=== PATIENT | female | born 1985 | race Caucasian/White ===

== ENCOUNTER 2017-01-16 15:12 | Outpatient (CLI) | payer OTHER ==
[2017-01-16 14:28] LABS: BASOPHILS % (AUTO) 0.4 %; EOSINOPHILS # (AUTO) 0.1 10^3/uL (0.0-0.7); EOSINOPHILS % (AUTO) 1.3 %; HCT - HEMATOCRIT 43.4 % (37.0-47.0); HGB - HEMOGLOBIN 14.8 g/dL (12.0-16.0); LYMPHOCYTES # (AUTO) 1.7 10^3/uL (1.5-3.5); LYMPHOCYTES % (AUTO) 38.1 %; MEAN CORPUSCULAR HEMOGLOBIN 30.4 pg (27.0-31.0); MEAN CORPUSCULAR VOLUME 89.6 fL (81.0-99.0); MEAN PLATELET VOLUME 8.3 fL (7.9-10.8); MONOCYTES # (AUTO) 0.3 10^3/uL (0.0-1.0); MONOCYTES % (AUTO) 7.4 %; NEUTROPHILS # (AUTO) 2.4 10^3/uL (1.5-6.6); NEUTROPHILS % (AUTO) 52.8 %; NUCLEATED RED BLOOD CELLS AUTO 0.1 /100WBC; RED BLOOD COUNT 4.85 10^6/uL (4.20-5.40); RED CELL DISTRIBUTION WIDTH 13.8 % (12.0-15.0); UNCORRECTED WHITE BLOOD COUNT 4.6 x10^3/uL; WHITE BLOOD COUNT 4.6 x10^3/uL (4.8-10.8)
[2017-01-16 14:49] LABS: THYROID STIMULATING HORMONE 5.85 uIU/mL (0.34-5.60)
[2017-01-16 15:04] LABS: ALBUMIN/GLOBULIN RATIO 1.4 (1.0-2.2); BILIRUBIN,TOTAL 0.9 mg/dL (0.2-1.0); BUN - BLOOD UREA NITROGEN 10 mg/dL (6-20); CALCIUM 9.1 mg/dL (8.5-10.3); CARBON DIOXIDE - CO2 28 mmol/L (21-32); CHLORIDE 105 mmol/L (101-111); CHOL/HDL RATIO 4.9 (<4.4); CHOLESTEROL 200 mg/dL; CREATININE 0.8 mg/dL (0.4-1.0); GFR - MDRD 84 (>89); GLUCOSE 93 mg/dL (70-100); HDL CHOLESTEROL 41 mg/dL; LDL/HDL RATIO 3.2 (<4.4); POTASSIUM 4.1 mmol/L (3.5-5.0); SODIUM 139 mmol/L (135-145); TOTAL PROTEIN 7.5 g/dL (6.7-8.2); TRIGLYCERIDES 146 mg/dL; VLDL CHOLESTEROL 29 mg/dL
[2017-01-16 15:10] LABS: HEMOGLOBIN A1C 0.49 g/dL
== END 2017-01-16 15:13 | disposition home or self-care (01) ==
LOC: LAB.WCP 15:12
PROVIDERS: ATTEND Family Medicine
DX: Z00.00 Encounter for general adult medical examination without abnormal findings (principal)
CPT/HCPCS: 36415; 80053; 80061; 83036; 84439; 84443; 85025

== ENCOUNTER 2017-06-25 08:00 | Outpatient (CLI) | payer OTHER ==
[2017-06-25 13:46] LABS: CHOL/HDL RATIO 4.8 (<4.4); CHOLESTEROL 184 mg/dL; HDL CHOLESTEROL 38 mg/dL; LDL CHOLESTEROL,CALCULATED 126 mg/dL; LDL/HDL RATIO 3.3 (<4.4); VLDL CHOLESTEROL 20 mg/dL
[2017-06-25 13:48] LABS: THYROID STIMULATING HORMONE 5.62 uIU/mL (0.34-5.60)
[2017-06-25 14:16] LABS: LUTEINIZING HORMONE 6.5 mIU/mL
[2017-06-25 14:17] LABS: FOLLICLE STIMULATING HORMONE 7.11 mIU/mL
[2017-06-25 14:55] LABS: HB2 TOTAL 16.1 g/dL; HEMOGLOBIN A1C 0.5 g/dL
== END 2017-06-25 08:01 | disposition home or self-care (01) ==
LOC: LAB.WCP 08:00
PROVIDERS: ATTEND Obstetrics & Gynecology
DX: E78.5 Hyperlipidemia, unspecified (principal)
CPT/HCPCS: 36415; 80061; 82670; 82947; 83001; 83002; 83036; 83721; 84443

== ENCOUNTER 2017-07-03 11:55 | Outpatient (CLI) | payer OTHER ==
[2017-07-03 19:34] LABS: THYROID STIMULATING HORMONE 3.95 uIU/mL (0.34-5.60)
== END 2017-07-03 11:56 | disposition home or self-care (01) ==
LOC: LAB.WCP 11:55
PROVIDERS: ATTEND Obstetrics & Gynecology
DX: E03.9 Hypothyroidism, unspecified (principal)
CPT/HCPCS: 36415; 84439; 84443; 84481

== ENCOUNTER 2017-11-26 08:00 | Outpatient (CLI) | payer OTHER | END 2017-11-26 08:01 | disposition home or self-care (01) | LOC: LAB.R 08:00 | PROVIDERS: ATTEND Obstetrics & Gynecology | DX: Z11.3 Encounter for screening for infections with a predominantly sexual mode of transmission (principal) | CPT/HCPCS: 87491; 87591 ==

== ENCOUNTER 2017-11-26 10:04 | Outpatient (CLI) | payer OTHER | END 2017-11-26 10:05 | disposition home or self-care (01) | LOC: LAB 10:04 | PROVIDERS: ATTEND Obstetrics & Gynecology | DX: Z32.01 Encounter for pregnancy test, result positive (principal); Z11.3 Encounter for screening for infections with a predominantly sexual mode of transmission | CPT/HCPCS: 36415; 84702; 87491; 87591 ==

== ENCOUNTER 2017-11-27 14:47 | Outpatient (CLI) | payer OTHER ==
--- NOTE | 2017-11-27 18:03 | Ultrasound Report ---
Procedure Date: 11/27/2017 Accession Number: [id number] / [id number] Procedure: US - OB First Trimester CPT Code: FULL RESULT: EXAM: FIRST TRIMESTER OBSTETRIC ULTRASOUND (Less than 11 weeks) EXAM DATE: 11/27/2017 05:42 PM. CLINICAL HISTORY: Encounter for test, result positive. LMP: 09/22/2017. COMPARISONS: Pelvic ultrasound 12/08/2015. TECHNIQUE: Transabdominal and transvaginal ultrasound examination with static image documentation. CLINICAL DATES: EGA 9 weeks 3 days with ANIBAL 06/29/2018 based on LMP. ASSESSMENT: Gestational Sac: Single intrauterine. Mean gestational sac diameter: 22.4 mm = 6 weeks 5 days. Embryo: Possibly visualized CRL (crown-rump length) 3 mm mm = 5 weeks 6 days. Cardiac activity: Not visualized. Yolk sac: Not visualized. Amniotic fluid: Not accurately assessed at this gestational age. Early placenta: Not visible at this gestational age. Other: No perigestational fluid collection demonstrated. MATERNAL STRUCTURES: Uterus: Anteflexed. Pedunculated subserosal lower uterine segment fibroid measures 4.6 x 3.0 x 3.7 cm. Posterior fundal subserosal fibroid measures 2.5 x 1.9 x 1.1 cm. Intramural posterior fundal fibroid measures 1.5 x 1.4 x 1.4 cm. Cervix: Closed. Right Ovary/Adnexa: Probable corpus luteum measuring up to 2.1 cm. The ovary measures 3.9 x 2.6 x 2.3 cm, volume 12 cc. Left Ovary/Adnexa: Unremarkable. The ovary measures 3.6 x 2.6 x 2.1 cm, volume 10 cc. Free Fluid: Trace free fluid is likely physiologic. Other: None. IMPRESSION: 1. Intrauterine gestational sac with possible small embryo. Gestational age 5 weeks 6 days by presumed crown-rump length, discordant with clinical dates, recommend redating based upon this exam. No heart rate demonstrated. Findings are suspicious for but not diagnostic of failure. Recommend follow-up ultrasound in 7-10 days. 2. Uterine fibroids. 3. No evidence of ectopic/heterotopic with unremarkable adnexa. RADIA The above findings were discussed with Di Brunson by Dr. Marvin Chu at 17:59 hrs on 11/27/17.
== END 2017-11-27 14:48 | disposition home or self-care (01) ==
LOC: DI 14:47
PROVIDERS: ATTEND Obstetrics & Gynecology
DX: O34.11 Maternal care for benign tumor of corpus uteri, first trimester (principal); D25.1 Intramural leiomyoma of uterus; D25.2 Subserosal leiomyoma of uterus; Z3A.01 Less than 8 weeks gestation of pregnancy
CPT/HCPCS: 76801; 76817

== ENCOUNTER 2017-12-04 02:23 | Emergency (ER) | payer OTHER ==
[2017-12-04] MEDS ORDERED: SODIUM CHLORIDE 0.9% 1,000 ML IV ONE (03:00)
[2017-12-04 03:05] LABS: BASOPHILS % (AUTO) 0.6 %; EOSINOPHILS # (AUTO) 0.1 10^3/uL (0.0-0.7); EOSINOPHILS % (AUTO) 1.8 %; HGB - HEMOGLOBIN 13.7 g/dL (12.0-16.0); LYMPHOCYTES # (AUTO) 2.2 10^3/uL (1.5-3.5); MEAN CORPUSCULAR HEMOGLOBIN 30.3 pg (27.0-31.0); MEAN CORPUSCULAR HGB CONC 34.2 g/dL (32.0-36.0); MEAN CORPUSCULAR VOLUME 88.5 fL (81.0-99.0); MONOCYTES # (AUTO) 0.4 10^3/uL (0.0-1.0); MONOCYTES % (AUTO) 6.6 %; NEUTROPHILS # (AUTO) 3.7 10^3/uL (1.5-6.6); PLT - PLATELET COUNT 248 10^3/uL (130-450); RED BLOOD COUNT 4.51 10^6/uL (4.20-5.40); RED CELL DISTRIBUTION WIDTH 12.8 % (12.0-15.0); WHITE BLOOD COUNT 6.4 x10^3/uL (4.8-10.8)
[2017-12-04 03:17] LABS: ALBUMIN 4.2 g/dL (3.2-5.5); ALBUMIN/GLOBULIN RATIO 1.6 (1.0-2.2); BILIRUBIN,TOTAL 0.6 mg/dL (0.2-1.0); CREATININE 0.7 mg/dL (0.4-1.0); TOTAL PROTEIN 6.9 g/dL (6.7-8.2)
--- NOTE | 2017-12-04 03:26 | ED Physician Documentation ---
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 US in office did not provide adequate images, and thus patient had US performed in [facility] (outpatient). This US revealed gestational sac with measurements s/o 5w6d and no heart movement seen, suspicious for " failure". Plan was f/u US to be performed this coming Thursday. She presents at this time to ED due to bleeding and suprapubic cramping radiating to back, onset noon today but suddenly, significantly worse 10 PM. This is her first . Review of Systems Constitutional: denies: Fever Cardiac: reports: Reviewed and negative Respiratory: reports: Reviewed and negative GI: reports: Abdominal Pain (suprapubic pelvic cramping). denies: Nausea, Vomiting : reports: Vaginal bleeding, Now EGA (see HPI above). denies: Dysuria, Frequency Musculoskeletal: reports: Back pain PD PAST MEDICAL HISTORY - Past Medical History Past Medical History: No - Past Surgical History Past Surgical History: Yes - Present Medications Home Medications: Ambulatory Orders Medication Instructions Recorded Confirmed Pnv No.122/Iron/Folic Acid 1 each PO 12/04/17 [ Multi Tablet] - Allergies Allergies/Adverse Reactions: Allergies Allergy/AdvReac Type Severity Reaction Status Date / Time No Known Drug Allergies Allergy Verified 12/04/17 02:32 - Social History Does the pt smoke?: No Smoking Status: Never smoker Does the pt drink ETOH?: Yes Does the pt have substance abuse?: No - Immunizations Immunizations are current?: Yes PD ED PE NORMAL - Vitals Vital signs reviewed: Yes - General General: Alert and oriented X 3, No acute distress, Well developed/nourished - Cardiac Cardiac: RRR, No murmur - Respiratory Respiratory: No respiratory distress, Clear bilaterally - Abdomen Abdomen: Soft, Non tender - Back Back: No CVA TTP PD ED PE EXPANDED - Female Female : Vaginal Bleeding, Tissue present, Senior Instrumentation Engineer present, Other (large amt. blood in vagina, with clot that appears to also contain tissue, which was removed along with the blood. This allowed for good visualization of the cervix , and no active bleeding noted once the clot/(tissue?) was removed). No: Dilated cervix Results - Vitals Vitals: Vital Signs - 24 hr 12/04/17 12/04/17 12/04/17 02:28 04:46 06:47 Temperature 36.9 C Heart Rate 86 83 74 Respiratory 16 16 16 Rate Blood Pressure 127/93 H 114/88 H 120/94 H O2 Saturation 99 100 99 12/04/17 08:22 Temperature 37.3 C Heart Rate 83 Respiratory 20 Rate Blood Pressure 115/78 O2 Saturation 99 Oxygen O2 Source Room air - Labs Labs: Laboratory Tests 12/04/17 12/04/17 12/04/17 02:45 02:45 02:45 WBC 6.4 RBC 4.51 Hgb 13.7 Hct 39.9 MCV 88.5 MCH 30.3 MCHC 34.2 RDW 12.8 Plt Count 248 MPV 8.0 Neut # (Auto) 3.7 Lymph # (Auto) 2.2 [place] # (Auto) 0.4 Eos # (Auto) 0.1 Baso # (Auto) 0.0 Absolute Nucleated RBC 0.00 Nucleated RBC % 0.0 Sodium 139 Potassium 3.4 L Chloride 105 Carbon Dioxide 26 Anion Gap 8.0 BUN 6 Creatinine 0.7 Estimated GFR (MDRD) 97 Glucose 105 H Calcium 9.0 Total Bilirubin 0.6 AST 18 ALT 11 Alkaline Phosphatase 50 Total Protein 6.9 Albumin 4.2 Globulin 2.7 Albumin/Globulin Ratio 1.6 Lipase 36 HCG, Quant Urine Color Urine Clarity Urine pH Ur Specific [place] Urine Protein Urine Glucose (UA) Urine Ketones Urine Occult Blood Urine Nitrite Urine Bilirubin Urine Urobilinogen Ur Leukocyte Esterase Urine RBC Urine WBC Ur Squamous Epith Cells Urine Bacteria Ur Microscopic Review Urine Culture Comments Blood Type O POSITIVE Antibody Screen NEGATIVE 12/04/17 12/04/17 02:45 03:54 WBC RBC Hgb Hct MCV MCH MCHC RDW Plt Count MPV Neut # (Auto) Lymph # (Auto) [place] # (Auto) Eos # (Auto) Baso # (Auto) Absolute Nucleated RBC Nucleated RBC % Sodium Potassium Chloride Carbon Dioxide Anion Gap BUN Creatinine Estimated GFR (MDRD) Glucose Calcium Total Bilirubin AST ALT Alkaline Phosphatase Total Protein Albumin Globulin Albumin/Globulin Ratio Lipase HCG, Quant 9525.00 Urine Color RED/BLOODY Urine Clarity BLOODY Urine pH Ur Specific [place] Urine Protein Urine Glucose (UA) Urine Ketones Urine Occult Blood LARGE H Urine Nitrite Urine Bilirubin NEGATIVE Urine Urobilinogen Ur Leukocyte Esterase Urine RBC TNTC H Urine WBC 0-3 Ur Squamous Epith Cells NONE SEEN Urine Bacteria Rare Ur Microscopic Review INDICATED Urine Culture Comments Not Reportable Blood Type Antibody Screen - Rads (name of study) pelvic/TV US Radiology: Prelim report reviewed, See rad report PD MEDICAL DECISION MAKING - ED course Complexity details: reviewed results, re-evaluated patient, considered differential, d/w patient ED course: reassuring CBC. HCG quantitative reveals substantial decrease from 11/26/17 (less than one-third of value on 11/26), and US results suggest completed miscarriage ( also considering closed os, as well as resolution of cramping discomfort and significant decrease in patient's vaginal bleeding subsequent to pelvic exam but while awaiting US and results). These results and diagnosis were d/w patient and she expresses understanding of the diagnosis and test results. - Sepsis Event Vital Signs: Vital Signs - 24 hr 12/04/17 12/04/17 12/04/17 02:28 04:46 06:47 Temperature 36.9 C Heart Rate 86 83 74 Respiratory 16 16 16 Rate Blood Pressure 127/93 H 114/88 H 120/94 H O2 Saturation 99 100 99 12/04/17 08:22 Temperature 37.3 C Heart Rate 83 Respiratory 20 Rate Blood Pressure 115/78 O2 Saturation 99 Oxygen O2 Source Room air Departure - Departure Disposition: 01 Home, Self Care Clinical Impression: Complete miscarriage Condition: Good Instructions: ED Miscarriage Completed Follow-Up: Di Brunson DO [Provider Admit Priv/Credential] - Forms: Activity restrictions Discharge Date/Time: 12/04/17 08:25
[2017-12-04 04:25] LABS: BILIRUBIN,URINE NEGATIVE (NEGATIVE); OCCULT BLOOD,URINE LARGE (NEGATIVE)
[2017-12-04 04:33] LABS: CLARITY,URINE BLOODY (CLEAR)
[2017-12-04 04:35] LABS: BACTERIA,URINE Rare /HPF (None Seen); RBC,URINE TNTC /HPF (0-5); SQUAMOUS EPITHELIAL CELL,UR NONE SEEN (<= Few)
--- NOTE | 2017-12-04 07:52 | Ultrasound Report ---
Procedure Date: 12/04/2017 Accession Number: [id number] / [id number] Procedure: US - OB First Trimester CPT Code: FULL RESULT: EXAM: PELVIC ULTRASOUND EXAM DATE: 12/04/2017 06:02 AM. CLINICAL HISTORY: , vaginal bleeding. COMPARISON: 11/27/2017. TECHNIQUE: Realtime transabdominal pelvic scan performed to identify the uterus and adnexa and as an overview of other pelvic structures, followed by transvaginal scan to provide greater detail of the uterus and adnexa, with static image documentation. FINDINGS: Uterus: 9.4 x 5.5 x 6.5 cm, c. Anteverted position. Normal overall size and echotexture. Masses: Fibroids Endometrium: 13 x 26 mm. Avascular soft tissue lower uterine segment Cervix: Unremarkable. Right Ovary: 4 x 2.3 x 2.5 cm, volume 11.8 cc. Normal echotexture and blood flow. Left Ovary: 2.6 x 2.2 x 2.2 cm, volume 6.7 cc. Normal echotexture and blood flow. Free Fluid: None. Other: None. IMPRESSION: Gestational sac seen previously no longer present. There is avascular soft tissue in the endometrial. Findings suspicious for failure. Follow-up ultrasound 7-10 days RADIA
--- NOTE | 2017-12-04 08:01 | Ultrasound Report ---
Procedure Date: 12/04/2017 Accession Number: [id number] / [id number] Procedure: US - OB Transvaginal CPT Code: FULL RESULT: EXAM: PELVIC ULTRASOUND EXAM DATE: 12/04/2017 06:02 AM. CLINICAL HISTORY: , vaginal bleeding. COMPARISON: 11/27/2017. TECHNIQUE: Realtime transabdominal pelvic scan performed to identify the uterus and adnexa and as an overview of other pelvic structures, followed by transvaginal scan to provide greater detail of the uterus and adnexa, with static image documentation. FINDINGS: Uterus: 9.4 x 5.5 x 6.5 cm, anteverted position. Normal overall size and echotexture. Masses: Fibroids. Endometrium: 13 x 26 mm. Avascular soft tissue lower uterine segment. Cervix: Unremarkable. Right Ovary: 4 x 2.3 x 2.5 cm, volume 11.8 cc. Normal echotexture and blood flow. Left Ovary: 2.6 x 2.2 x 2.2 cm, volume 6.7 cc. Normal echotexture and blood flow. Free Fluid: None. Other: None. IMPRESSION: Gestational sac seen previously no longer present. There is avascular soft tissue within the endometrium. Findings suspicious for failure. Follow-up ultrasound 7-10 days. RADIA
[2017-12-04 08:23] VITALS: BP 115/78
== END 2017-12-04 08:25 | disposition home or self-care (01) ==
LOC: ED 02:23
DX: O03.80 Unspecified complication following complete or unspecified spontaneous abortion (principal)
CPT/HCPCS: 36415; 76801; 76817; 80053; 81001; 81003; 83690; 84702; 85025; 86850; 86900; 86901; 87086; 96360; 99284

== ENCOUNTER 2018-01-13 14:01 | Outpatient (CLI) | payer OTHER ==
[2018-01-13 19:43] LABS: THYROID STIMULATING HORMONE 4.52 uIU/mL (0.34-5.60)
[2018-01-13 19:45] LABS: FREE T4 (FREE THYROXINE) 0.92 ng/dL (0.58-1.64)
== END 2018-01-13 14:02 | disposition home or self-care (01) ==
LOC: LAB.WCP 14:01
PROVIDERS: ATTEND Obstetrics & Gynecology
DX: Z13.29 Encounter for screening for other suspected endocrine disorder (principal)
CPT/HCPCS: 36415; 84439; 84443; 84481

== ENCOUNTER 2018-06-22 07:39 | Outpatient (CLI) | payer OTHER ==
[2018-06-22 13:06] LABS: CHOL/HDL RATIO 4.2 (<4.4); CHOLESTEROL 192 mg/dL; HDL CHOLESTEROL 46 mg/dL; LDL CHOLESTEROL,CALCULATED 130 mg/dL; LDL/HDL RATIO 2.8 (<4.4); VLDL CHOLESTEROL 16 mg/dL
== END 2018-06-22 07:40 | disposition home or self-care (01) ==
LOC: LAB.WCP 07:39
PROVIDERS: ATTEND Family Medicine
DX: E78.5 Hyperlipidemia, unspecified (principal)
CPT/HCPCS: 36415; 80061; 83721

== ENCOUNTER 2018-08-10 08:11 | Outpatient (CLI) | payer OTHER ==
[2018-08-10 12:47] LABS: THYROID STIMULATING HORMONE 1.59 uIU/mL (0.34-5.60)
[2018-08-10 12:49] LABS: FREE T4 (FREE THYROXINE) 1.15 ng/dL (0.58-1.64)
== END 2018-08-10 08:12 | disposition home or self-care (01) ==
LOC: LAB.WCP 08:11
PROVIDERS: ATTEND Specialist
DX: E03.8 Other specified hypothyroidism (principal); Z13.29 Encounter for screening for other suspected endocrine disorder
CPT/HCPCS: 36415; 84439; 84443

== ENCOUNTER 2018-11-29 08:00 | Outpatient (CLI) | payer OTHER | END 2018-11-29 08:01 | disposition home or self-care (01) | LOC: LAB.WCP 08:00 | PROVIDERS: ATTEND Specialist | DX: N97.9 Female infertility, unspecified (principal) | CPT/HCPCS: 36415; 84144 ==

== ENCOUNTER 2018-11-30 08:00 | Outpatient (CLI) | payer OTHER | END 2018-11-30 08:01 | disposition home or self-care (01) | LOC: LAB.WCP 08:00 | PROVIDERS: ATTEND Specialist | DX: N97.9 Female infertility, unspecified (principal) | CPT/HCPCS: 36415; 84144 ==

== ENCOUNTER 2018-12-01 08:00 | Outpatient (CLI) | payer OTHER | END 2018-12-01 23:59 | disposition home or self-care (01) | LOC: LAB.WCP 08:00 | PROVIDERS: ATTEND Specialist | DX: N97.9 Female infertility, unspecified (principal) | CPT/HCPCS: 36415; 84144 ==

== ENCOUNTER 2018-12-13 08:00 | Outpatient (CLI) | payer OTHER ==
[2018-12-13 19:29] LABS: THYROID STIMULATING HORMONE 1.73 uIU/mL (0.34-5.60)
[2018-12-13 19:31] LABS: FREE T4 (FREE THYROXINE) 1.05 ng/dL (0.58-1.64)
== END 2018-12-13 23:59 | disposition home or self-care (01) ==
LOC: LAB.WCP 08:00
PROVIDERS: ATTEND Specialist
DX: E03.8 Other specified hypothyroidism (principal); Z13.29 Encounter for screening for other suspected endocrine disorder
CPT/HCPCS: 36415; 84439; 84443

== ENCOUNTER 2019-01-14 08:00 | Outpatient (CLI) | payer OTHER ==
[2019-01-14 18:44] LABS: BASOPHILS % (AUTO) 0.5 %; EOSINOPHILS # (AUTO) 0.1 10^3/uL (0.0-0.7); EOSINOPHILS % (AUTO) 1.6 %; HGB - HEMOGLOBIN 13.6 g/dL (12.0-16.0); LYMPHOCYTES % (AUTO) 45.3 %; MEAN CORPUSCULAR HEMOGLOBIN 30.6 pg (27.0-31.0); MEAN CORPUSCULAR HGB CONC 33.3 g/dL (32.0-36.0); MEAN CORPUSCULAR VOLUME 91.7 fL (81.0-99.0); MEAN PLATELET VOLUME 10.4 fL (7.9-10.8); MONOCYTES # (AUTO) 0.3 10^3/uL (0.0-1.0); NEUTROPHILS % (AUTO) 45.4 %; PLT - PLATELET COUNT 282 10^3/uL (130-450); RED BLOOD COUNT 4.45 10^6/uL (4.20-5.40); RED CELL DISTRIBUTION WIDTH 12.4 % (12.0-15.0); WHITE BLOOD COUNT 4.3 x10^3/uL (4.8-10.8)
[2019-01-14 19:49] LABS: ALBUMIN 4.3 g/dL (3.2-5.5); ALBUMIN/GLOBULIN RATIO 1.4 (1.0-2.2); ALKALINE PHOSPHATASE 47 IU/L (42-121); ALT ALANINE AMINOTRANSFERASE 11 IU/L (10-60); AST ASPARTATE AMINOTRANSFERASE 12 IU/L (10-42); BILIRUBIN,TOTAL 0.6 mg/dL (0.2-1.0); BUN - BLOOD UREA NITROGEN 9 mg/dL (6-20); CALCIUM 9.3 mg/dL (8.5-10.3); CARBON DIOXIDE - CO2 31 mmol/L (21-32); CHLORIDE 101 mmol/L (101-111); CHOL/HDL RATIO 3.3 (<4.4); CHOLESTEROL 163 mg/dL; CREATININE 0.8 mg/dL (0.4-1.0); GFR - MDRD 83 (>89); GLUCOSE 89 mg/dL (70-100); HDL CHOLESTEROL 50 mg/dL; LDL CHOLESTEROL,CALCULATED 90 mg/dL; LDL/HDL RATIO 1.8 (<4.4); SODIUM 141 mmol/L (135-145); TOTAL PROTEIN 7.3 g/dL (6.7-8.2); VLDL CHOLESTEROL 23 mg/dL
[2019-01-14 19:56] LABS: THYROID STIMULATING HORMONE 1.97 uIU/mL (0.34-5.60)
[2019-01-14 19:58] LABS: FREE T4 (FREE THYROXINE) 1.03 ng/dL (0.58-1.64)
[2019-01-14 20:11] LABS: HEMOGLOBIN A1C 0.48 g/dL; HEMOGLOBIN A1C % 5.3 % (4.6-6.2)
== END 2019-01-14 23:59 | disposition home or self-care (01) ==
LOC: LAB.WCP 08:00
PROVIDERS: ATTEND Specialist
DX: Z00.00 Encounter for general adult medical examination without abnormal findings (principal); E78.5 Hyperlipidemia, unspecified; R79.89 Other specified abnormal findings of blood chemistry; E03.8 Other specified hypothyroidism
CPT/HCPCS: 36415; 80053; 80061; 83036; 83721; 84439; 84443; 85025

== ENCOUNTER 2019-01-25 08:00 | Outpatient (CLI) | payer OTHER | END 2019-01-25 23:59 | disposition home or self-care (01) | LOC: LAB.WCP 08:00 | PROVIDERS: ATTEND Specialist | DX: Z31.41 Encounter for fertility testing (principal) | CPT/HCPCS: 36415; 84144 ==

== ENCOUNTER 2019-01-26 08:09 | Outpatient (CLI) | payer OTHER | END 2019-01-26 23:59 | disposition home or self-care (01) | LOC: LAB.WCP 08:09 | PROVIDERS: ATTEND Specialist | DX: Z31.41 Encounter for fertility testing (principal) | CPT/HCPCS: 36415; 84144 ==

== ENCOUNTER 2019-01-27 08:23 | Outpatient (CLI) | payer OTHER | END 2019-01-27 23:59 | disposition home or self-care (01) | LOC: LAB.WCP 08:23 | PROVIDERS: ATTEND Specialist | DX: Z31.41 Encounter for fertility testing (principal) | CPT/HCPCS: 36415; 84144 ==

== ENCOUNTER 2019-02-21 08:00 | Outpatient (CLI) | payer OTHER | END 2019-02-21 23:59 | disposition home or self-care (01) | LOC: LAB.WCP 08:00 | PROVIDERS: ATTEND Specialist | DX: Z32.00 Encounter for pregnancy test, result unknown (principal); Z31.41 Encounter for fertility testing | CPT/HCPCS: 36415; 81599; 84144; 84702 ==

== ENCOUNTER 2019-02-23 07:55 | Outpatient (CLI) | payer OTHER | END 2019-02-23 23:59 | LOC: LAB.WCP 07:55 | PROVIDERS: ATTEND Specialist | DX: Z32.01 Encounter for pregnancy test, result positive (principal); Z13.29 Encounter for screening for other suspected endocrine disorder | CPT/HCPCS: 36415; 84443; 84702 ==

== ENCOUNTER 2019-03-07 08:00 | Outpatient (CLI) | payer OTHER | END 2019-03-07 23:59 | disposition home or self-care (01) | LOC: LAB.WCP 08:00 | PROVIDERS: ATTEND Specialist | DX: Z32.01 Encounter for pregnancy test, result positive (principal) | CPT/HCPCS: 36415; 84702 ==

== ENCOUNTER 2019-03-28 08:00 | Outpatient (CLI) | payer OTHER ==
[2019-03-28 19:43] LABS: THYROID STIMULATING HORMONE 1.45 uIU/mL (0.34-5.60)
[2019-03-28 19:45] LABS: FREE T4 (FREE THYROXINE) 1.07 ng/dL (0.58-1.64)
== END 2019-03-28 23:59 | disposition home or self-care (01) ==
LOC: LAB.WCP 08:00
PROVIDERS: ATTEND Specialist
DX: Z13.29 Encounter for screening for other suspected endocrine disorder (principal); E03.8 Other specified hypothyroidism
CPT/HCPCS: 36415; 84439; 84443

== ENCOUNTER 2019-10-12 08:00 | Outpatient (CLI) | payer OTHER ==
[2019-10-12 12:52] LABS: THYROID STIMULATING HORMONE 2.84 uIU/mL (0.34-5.60)
[2019-10-12 12:54] LABS: FREE T4 (FREE THYROXINE) 1.16 ng/dL (0.58-1.64)
[2019-10-12 13:17] LABS: HB2 TOTAL 14.7 g/dL; HEMOGLOBIN A1C 0.49 g/dL; HEMOGLOBIN A1C % 5.2 % (4.6-6.2)
== END 2019-10-12 23:59 | disposition home or self-care (01) ==
LOC: LAB.WCP 08:00
PROVIDERS: ATTEND Specialist
DX: Z13.29 Encounter for screening for other suspected endocrine disorder (principal); E03.8 Other specified hypothyroidism; R73.09 Other abnormal glucose; E55.9 Vitamin D deficiency, unspecified
CPT/HCPCS: 36415; 81599; 82306; 82397; 83036; 84439; 84443

== ENCOUNTER 2019-10-31 08:00 | Outpatient (CLI) | payer OTHER ==
[2019-10-31 13:45] LABS: T4 (THYROXINE) 10.47 ug/dL (6.09-12.23)
[2019-10-31 13:49] LABS: FREE T3 3.11 pg/mL (2.5-3.9)
[2019-10-31 13:54] LABS: TOTAL T3 1.15 ng/mL (0.87-1.78)
[2019-10-31 13:57] LABS: CHOL/HDL RATIO 3.9 (<4.4); CHOLESTEROL 222 mg/dL; GLUCOSE 84 mg/dL (70-100); HDL CHOLESTEROL 57 mg/dL; LDL CHOLESTEROL,CALCULATED 148 mg/dL; LDL/HDL RATIO 2.6 (<4.4); VLDL CHOLESTEROL 17 mg/dL
[2019-11-01 07:03] LABS: PROGESTERONE 13.4 ng/mL
== END 2019-10-31 23:59 | disposition home or self-care (01) ==
LOC: LAB.WCP 08:00
DX: Z31.41 Encounter for fertility testing (principal); E28.39 Other primary ovarian failure; E28.2 Polycystic ovarian syndrome; E66.9 Obesity, unspecified
CPT/HCPCS: 36415; 80061; 81599; 82627; 82947; 83525; 83721; 84144; 84436; 84480; 84481; 84482

== ENCOUNTER 2020-07-03 08:00 | Outpatient (CLI) | payer OTHER ==
[2020-07-03 12:21] LABS: ALT ALANINE AMINOTRANSFERASE 12 IU/L (10-60); AST ASPARTATE AMINOTRANSFERASE 15 IU/L (10-42); GAMMA GLUTAMYL TRANSPEPTIDASE 12 IU/L (8-38)
== END 2020-07-03 23:59 | disposition home or self-care (01) ==
LOC: LAB.WCP 08:00
PROVIDERS: ATTEND Naturopath
DX: Z31.61 Procreative counseling and advice using natural family planning (principal)
CPT/HCPCS: 36415; 82533; 82977; 84144; 84450; 84460

== ENCOUNTER 2020-08-28 08:00 | Outpatient (CLI) | payer OTHER ==
[2020-08-28 10:00] LABS: BILIRUBIN,URINE NEGATIVE (NEGATIVE); GLUCOSE, URINE (UA) 100 mg/dL (NEGATIVE); KETONES,URINE (UA) NEGATIVE (NEGATIVE); LEUKOCYTE ESTERASE, URINE NEGATIVE (NEGATIVE); NITRITE,URINE NEGATIVE (NEGATIVE); OCCULT BLOOD,URINE NEGATIVE (NEGATIVE); PROTEIN,URINE NEGATIVE (NEGATIVE); UROBILINOGEN,URINE 0.2 (NORMAL) E.U./dL (NORMAL)
[2020-08-28 10:03] LABS: CLARITY,URINE CLEAR (CLEAR)
[2020-08-28 10:09] LABS: AMPHETAMINE SCREEN,URINE NEGATIVE (NEGATIVE); BACTERIA,URINE Rare /HPF (None Seen); BARBITURATE SCREEN,UR NEGATIVE (NEGATIVE); BENZODIAZEPINES SCREEN, URINE NEGATIVE (NEGATIVE); COCAINE SCREEN URINE NEGATIVE (NEGATIVE); METHADONE SCREEN, URINE NEGATIVE (NEGATIVE); METHAMPHETAMINES SCREEN, URINE NEGATIVE (NEGATIVE); OPIATE SCREEN, URINE NEGATIVE (NEGATIVE); OXYCODONE SCREEN, URINE NEGATIVE (NEGATIVE); PROPOXYPHENE SCREEN, URINE NEGATIVE (NEGATIVE); RBC,URINE 0-5 /HPF (0-5); SQUAMOUS EPITHELIAL CELL,UR RARE Squamous (<= Few); THC CANNABINOID SCREEN, URINE NEGATIVE (NEGATIVE); TRICYCLIC ANTIDEPRESSANT,URINE NEGATIVE (NEGATIVE); WBC,URINE 0-3 /HPF (0-5)
[2020-08-28 10:10] LABS: MUDS CUTOFF CONCENTRATIONS MUDS CUTOFF
[2020-08-28 21:27] LABS: CHLAMYDIA TRACHOMATIS DNA NEGATIVE (NEGATIVE); NEISSERIA GONORRHOEAE DNA NEGATIVE (NEGATIVE); TRICHOMONAS VAGINALIS DNA NEGATIVE (NEGATIVE)
== END 2020-08-28 23:59 | disposition home or self-care (01) ==
LOC: LAB.WC 08:00
PROVIDERS: ATTEND Obstetrics & Gynecology
DX: Z34.80 Encounter for supervision of other normal pregnancy, unspecified trimester (principal); Z11.3 Encounter for screening for infections with a predominantly sexual mode of transmission
CPT/HCPCS: 80306; 81001; 87086; 87491; 87591; 87661

== ENCOUNTER 2020-08-31 08:00 | Outpatient (CLI) | payer OTHER ==
[2020-08-31 12:31] LABS: BASOPHILS % (AUTO) 0.5 %; EOSINOPHILS # (AUTO) 0.1 10^3/uL (0.0-0.7); EOSINOPHILS % (AUTO) 1.3 %; HCT - HEMATOCRIT 41.7 % (37.0-47.0); HGB - HEMOGLOBIN 13.7 g/dL (12.0-16.0); LYMPHOCYTES # (AUTO) 1.5 10^3/uL (1.5-3.5); LYMPHOCYTES % (AUTO) 23.9 %; MEAN CORPUSCULAR HEMOGLOBIN 30.4 pg (27.0-31.0); MEAN CORPUSCULAR HGB CONC 32.9 g/dL (32.0-36.0); MEAN CORPUSCULAR VOLUME 92.5 fL (81.0-99.0); MEAN PLATELET VOLUME 10.4 fL (7.9-10.8); MONOCYTES # (AUTO) 0.4 10^3/uL (0.0-1.0); MONOCYTES % (AUTO) 6.5 %; NEUTROPHILS # (AUTO) 4.2 10^3/uL (1.5-6.6); NEUTROPHILS % (AUTO) 67.6 %; PLT - PLATELET COUNT 280 10^3/uL (130-450); RED BLOOD COUNT 4.51 10^6/uL (4.20-5.40); RED CELL DISTRIBUTION WIDTH 12.9 % (12.0-15.0); WHITE BLOOD COUNT 6.2 x10^3/uL (4.8-10.8)
[2020-09-01 10:31] LABS: HEPATITIS C ANTIBODY NON-REACTIVE (NON-REACTIVE)
[2020-09-01 12:06] LABS: HEPATITIS B SURFACE ANTIGEN NON-REACTIVE (NON-REACTIVE)
[2020-09-01 13:11] LABS: HIV AG/AB 4TH GEN NON-REACTIVE (NON-REACTIVE)
== END 2020-08-31 08:01 | disposition home or self-care (01) ==
LOC: LAB.WCP 08:00
PROVIDERS: ATTEND Obstetrics & Gynecology
DX: Z34.80 Encounter for supervision of other normal pregnancy, unspecified trimester (principal)
CPT/HCPCS: 36415; 85025; 86592; 86762; 86787; 86803; 86850; 86900; 86901; 87340; 87389

== ENCOUNTER 2020-09-25 08:00 | Outpatient (CLI) | payer OTHER | END 2020-09-25 23:59 | disposition home or self-care (01) | LOC: LAB.WCP 08:00 | PROVIDERS: ATTEND Obstetrics & Gynecology | DX: Z34.80 Encounter for supervision of other normal pregnancy, unspecified trimester (principal) | CPT/HCPCS: 36415; 81220; 81243; 81329; 81599 ==

== ENCOUNTER 2020-11-02 15:53 | Outpatient (CLI) | payer OTHER ==
[2020-11-02 18:50] LABS: THYROID STIMULATING HORMONE 1.31 uIU/mL (0.34-5.60)
--- NOTE | 2020-11-04 17:41 | Ultrasound Report ---
PROCEDURE: OB Detailed Eval INDICATIONS: SUPERVISION OF ELDERLY PRIMIGRAVIDA OUTSIDE/PRIOR DATING DATA: Last menstrual period (LMP): Not available. LMP-based estimated date of delivery (ANIBAL): Not available. First dating scan (date and location): 08/06/2020. Estimated date of delivery (ANIBAL) from first dating scan: 03/18/2021, [facility]. The below data below was generated using the ultrasound ANIBAL of 03/18/2021 TECHNIQUE: Real-time scanning was performed of the fetus, with image documentation and biometric measurements. Endovaginal scanning: Not performed COMPARISON: OB Ultrasound report, 08/06/2020 from [facility]. FINDINGS: General: A single living intrauterine gestation is present. Presentation: Variable Placenta: Placental position is posterior, without previa. Amniotic fluid index: 13.9 cm, largest pocket 4.2 cm. heart rate: 164 beats per minute. Maternal cervical canal: 5.14 cm long; normal length is 2.5 cm or more. biometrics: Biparietal diameter: 4.6 cm = 19 weeks 2 days Head circumference: 17.8 cm = 20 weeks 2 days Abdominal circumference: 17.5 cm = 22 weeks 3 days Femur length: 3.38 cm = 20 weeks 4 days Estimated gestational age from initial scan: 20 weeks 4 days. Composite gestational age from present scan: 20 weeks 4 days Estimated weight and percentile: 419g; 86.3% Measurement variability in biometric dating: +/- 10 days from 12-20 weeks gestation, +/- 2 weeks from 20-30 weeks gestation, +/- 3 weeks at 30 weeks g estation or later. Anatomic survey: Neuro: Ventricles are normal at less than 10 mm. Cisterna magna is normal at 3-11 mm. Cerebellum i s normal in size and morphology. Nuchal skin fold: Normal at less than 6 mm between 14 and 20 weeks gestational age. Face: Nose and lips are normal. Facial profile suboptimally visualized due to position. Spine: No evidence for spina bifida. Heart: 4-chambered heart is present, with normal ventricular outflow tracts. Diaphragm: Diaphragm is intact. Stomach: Left-sided stomach is present. Kidneys: No hydronephrosis. Normal is less than 5 mm in 2nd trimester, less than 7 mm in 3rd trimester. Cord: 3 vessel cord has orthotopic insertion. Bladder: Normal in size. Extremities: All 4 extremities are visualized. Comments: There are multiple uterine fibroids. 3 dominant fibroids are measured: 1. 2.8 x 2.2 x 2.3 cm; subserosal; right posterior. 2. 3.7 x 3.0 x 2.9 cm;; intramural; right anterior fundal. 3. 1.9 x 1.6 x 1.7 cm; intramural/subserosal; right anterior. There are corpus luteal cysts in maternal ovaries bilaterally. IMPRESSION: 1. A single living intrauterine gestation with appropriate interval growth. 2. Suboptimal visualization of facial profile; otherwise normal anatomic survey. 3. Multiple uterine fibroids. Reviewed by: Krishna Wise MD on 11/04/2020 5:40 PM PDT Approved by: Krishna Wise MD on 11/04/2020 5:40 PM PDT Station ID: [id number]
== END 2020-11-02 15:54 | disposition home or self-care (01) ==
LOC: DI 15:53
PROVIDERS: ATTEND Obstetrics & Gynecology
DX: O09.512 Supervision of elderly primigravida, second trimester (principal); Z3A.20 20 weeks gestation of pregnancy
CPT/HCPCS: 36415; 81599; 84443

== ENCOUNTER 2020-12-14 07:08 | Outpatient (CLI) | payer OTHER ==
[2020-12-14 11:34] LABS: HCT - HEMATOCRIT 38.2 % (37.0-47.0); HGB - HEMOGLOBIN 12.5 g/dL (12.0-16.0); MEAN CORPUSCULAR HEMOGLOBIN 30.9 pg (27.0-31.0); MEAN CORPUSCULAR HGB CONC 32.7 g/dL (32.0-36.0); MEAN CORPUSCULAR VOLUME 94.6 fL (81.0-99.0); MEAN PLATELET VOLUME 10.8 fL (7.9-10.8); RED BLOOD COUNT 4.04 10^6/uL (4.20-5.40); RED CELL DISTRIBUTION WIDTH 13.8 % (12.0-15.0); WHITE BLOOD COUNT 6.7 x10^3/uL (4.8-10.8)
[2020-12-14 12:19] LABS: THYROID STIMULATING HORMONE 2.27 uIU/mL (0.34-5.60)
== END 2020-12-14 07:09 | disposition home or self-care (01) ==
LOC: LAB.N 07:08
PROVIDERS: ATTEND Obstetrics & Gynecology
DX: Z34.80 Encounter for supervision of other normal pregnancy, unspecified trimester (principal); R94.6 Abnormal results of thyroid function studies
CPT/HCPCS: 36415; 82950; 84443; 85025; 85027

== ENCOUNTER 2021-01-25 07:08 | Outpatient (CLI) | payer OTHER ==
[2021-01-25 13:08] LABS: THYROID STIMULATING HORMONE 2.78 uIU/mL (0.34-5.60)
[2021-01-25 13:10] LABS: FREE T4 (FREE THYROXINE) 0.9 ng/dL (0.58-1.64)
== END 2021-01-25 07:09 | disposition home or self-care (01) ==
LOC: LAB.N 07:08
PROVIDERS: ATTEND Obstetrics & Gynecology
DX: R94.6 Abnormal results of thyroid function studies (principal)
CPT/HCPCS: 36415; 84439; 84443

== ENCOUNTER 2021-02-18 07:09 | Outpatient (CLI) | payer OTHER ==
[2021-02-18 13:34] LABS: THYROID STIMULATING HORMONE 2.71 uIU/mL (0.34-5.60)
[2021-02-18 13:37] LABS: FREE T4 (FREE THYROXINE) 0.98 ng/dL (0.58-1.64)
== END 2021-02-18 07:10 | disposition home or self-care (01) ==
LOC: LAB.N 07:09
PROVIDERS: ATTEND Obstetrics & Gynecology
DX: O99.891 Other specified diseases and conditions complicating pregnancy (principal); R94.6 Abnormal results of thyroid function studies
CPT/HCPCS: 36415; 84439; 84443

== ENCOUNTER 2021-02-20 08:00 | Outpatient (CLI) | payer OTHER | END 2021-02-20 23:59 | disposition home or self-care (01) | LOC: LAB 08:00 | PROVIDERS: ATTEND Obstetrics & Gynecology | DX: Z34.90 Encounter for supervision of normal pregnancy, unspecified, unspecified trimester (principal) | CPT/HCPCS: 87081; 87797 ==

== ENCOUNTER 2021-03-14 15:05 | Outpatient (CLI) | payer OTHER ==
[2021-03-14 15:11] VITALS: BP 117/80
--- NOTE | 2021-03-14 16:16 | PROVIDER PROGRESS NOTE ---
- HPI Chief Complaint: Other (Leaking of vaginal mucous and spots of blood.) Current : Vital Signs Temperature 98.2 F 03/14/21 15:07 Temperature 98.2 F 03/14/21 15:10 Heart Rate 86 03/14/21 15:10 Respiratory Rate 18 03/14/21 15:10 Blood Pressure 117/80 03/14/21 15:10 O2 Saturation 100 03/14/21 15:10 - Exam 25yo at 39 3/7 weeks is having low back pain and vaginal mucous with spots of blood. Sterile Speculum exam: No lesions, no erythema, no discharge. Some vaginal mucous seen at cervix and a few spots of blood seen. Ferning test collected and performed and no ferning was seen. CX: 3cm/80%/-3 and vertex palpated and is ballotable. - Procedures OB Procedure Performed: NST NST Procedure: Patient was placed on monitor for 20 minutes. heart Baseline is 140 with moderate variability and Accelerations 15X15. No decelerations. Reactive NST. Category I monitor strip.Contractions are present every 3-5 minutes. Patient doesn't seem to notice most con tractions. - Plan Plan: Discharge to home with Labor Precautions. A-IUP 39 3/7 with Intact membranes P- Discharge to home with Labor Precautions.
== END 2021-03-14 16:30 | disposition home or self-care (01) ==
LOC: WFO 15:05 → FBP 15:05 → WFO 16:30
PROVIDERS: ATTEND Obstetrics & Gynecology
DX: O99.891 Other specified diseases and conditions complicating pregnancy (principal); N89.8 Other specified noninflammatory disorders of vagina; M54.50 Low back pain, unspecified
CPT/HCPCS: 59025; 99213

== ENCOUNTER 2021-03-14 17:15 | Inpatient (IN) | payer OTHER ==
[2021-03-14] MEDS ORDERED: METOCLOPRAMIDE 10 MG/2 ML VIAL IVP PRN (18:06)
[2021-03-14] MEDS ORDERED: METHYLERGONOVINE 0.2 MG/ML VIAL IM PRN (18:06)
[2021-03-14] MEDS ORDERED: ONDANSETRON 4 MG/2 ML VIAL IVP PRN (18:06)
[2021-03-14] MEDS ORDERED: OXYTOCIN/SODIUM CHLORIDE 500 ML IV PRN ×3 (18:06)
[2021-03-14] MEDS ORDERED: OXYTOCIN 10 UNIT/ML VIAL IM PRN (18:06)
[2021-03-14] MEDS ORDERED: LIDOCAINE-MPF 1% 30 ML VIAL ID PRN (18:06)
[2021-03-14] MEDS ORDERED: miSOPROStoL 200 MCG TABLET BC PRN (18:06)
[2021-03-14] MEDS ORDERED: AMPICILLIN 2 GM in SODIUM CHLORIDE 0.9% MINIBAG 100 ML IV ONE (18:06)
[2021-03-14] MEDS ORDERED: TRANEXAMIC ACID IN NACL 1,000 MG/100 ML BAG IV PRN (18:06)
[2021-03-14] MEDS ORDERED: CARBOPROST TROMETHAMINE 250 MCG/ML AMP IM PRN (18:06)
[2021-03-14] MEDS ORDERED: SODIUM CHLORIDE FLUSH 0.9% 10 ML SYRINGE IVP PRN (18:06)
--- NOTE | 2021-03-14 18:30 | HISTORY & PHYSICAL EXAMINATION ---
Admit History - Visit Reason Visit Reason: Membranes rupture - : 3 Parity: 0 Smoking Status: Never smoker - Mother's Labs Mother's Blood Type: positive: O Mother's RH: positive: Positive GBS: positive: Group B Strep Positive Rubella Status: positive: Immune - Other Maternal History Other Maternal History: ID: Patient is a 35 yo at 39+3 wga here with ruptured membranes. HPI: Patient reports having painful contractions since yesterday. Yesterday reports soaking pajamas and floor with a sudden gush of fluid. has filled a pad with fluid this afternoon and continues to lose fluid when shifting position. GBS positive. Continues to have mild contractions. Taking levothyroxine for hypothyroidism with levels maintained in optimal range through . Unclear hx of HSV, on valacyclovir for prophylaxis. Wants to avoid pitocin, if possible. Desires unmedicated, low intervention delivery if possible. PNH: LMP unknown US on 08/06/20 at 8w0d gives ANIBAL 03/18/21 HYPOTHYROID: -Levothyroxine 100 mcg 5 days and 88 mcg 2 days per week -TSH 1.31 on 11/02/20 TSH 2.27 on 11/2020 TSH 2.78 on 01/25/21 TSH 2.71 on 02/18 O pos/Rubella immune VZV: immune Genetic testing: HARMONY 46 XY,, AFP wnl - carrier screening completed with [facility] FAS: EFW 86%ile, CL 5.14 posterior placenta, 3VC Glucola: 93 TDAP: 12/20/2020 COVID: completed x2 (August 2020) Influenza: 02/13/2021 GBS: collected 02/20 at 36w2d POSITIVE HSV: unclear but positive hx; - patient has obtained. and started meds for ppx Breast pump Rx: 01-03-2021 MOD: Anticipate PP Contraception: TBD Pap:November 2017 per [facility] records PMH: hypothyroid high cholesterol MTHFR mutation carrier PSH: R TMJ 2001 L hip labrum repair FH: HTN: father CVD: father ALS: mother No cancer or DM SOC HX: Lives in [place] with , Zhang Works as a social professionals with [employer] No MEG ROS: As per HPI, otherwise remaining systems are negative. PE: VS: 135/84 65 98.8 GEN: NAD HEAD: NCAT EYES: No scleral icterus or conjunctival injection CV: RRR RESP: CTAB, normal effort ABD: gravid, S&NT/ND PSYCH: appropriate affect NEURO: alert and oriented, normal gait and coordination EXT: WWP SVE 3/[address] Barrientos EFM 125 mod adam 15x15 accels no decels TOCO: Q4-5 min A/P: Patient is a 35 yo at 39+3 wga here with ruptured membranes. SROM: Large gush of fluid with ROM+ positive Patient is GBS positive. CTX Q4-5 min -Patient wants to avoid pitocin if possible. -Will check at 2 hours post admission. Reported to have a forebag, will rupture forebag at that time If no further change, consider misoprostol BC -Will revisit pitocin if no significant cervical change FWB: Vertex, well grown, GBS positive -Cat I tracing -Start ampicillin CRISTINA for GBS ppx -Confirmed valacyclovir ppx and no s/s. Continued oral dosing. PAIN: Want to avoid pain medication -Reviewed plan. OK to offer pain medication but then let patient and partner discuss HYPOTHYROIDISM: Orderd levothyroxine 88 mcg for and Thursday -Andrade need 100 mcg on Thursday and Thursday In-patient care Meds/Allgy - Home Medications Home Medications: Ambulatory Orders Medication Instructions Recorded Confirmed No122/Iron/Folic Acid 1 each PO 12/04/17 [ Multi Tablet] - Allergies Allergies/Adverse Reactions: Allergies Allergy/AdvReac Type Severity Reaction Status Date / Time No Known Drug Allergies Allergy Verified 12/04/17 02:32 Physical - Abdominal Exam Vital Signs: Temp Pulse Resp BP Pulse Ox 98.8 F 03/14/21 18:20
[2021-03-14] MEDS ORDERED: AMPICILLIN 1 GM in SODIUM CHLORIDE 0.9% MINIBAG 100 ML IV SCH (19:00)
[2021-03-14] MEDS ORDERED: TERBUTALINE 1 MG/ML VIAL SUBQ SCH (19:00)
[2021-03-14] MEDS ORDERED: LACTATED RINGERS 1,000 ML IV SCH (19:00)
[2021-03-14 19:06] LABS: BASOPHILS % (AUTO) 0.3 %; EOSINOPHILS % (AUTO) 0.4 %; HCT - HEMATOCRIT 39.4 % (37.0-47.0); HGB - HEMOGLOBIN 13.3 g/dL (12.0-16.0); LYMPHOCYTES # (AUTO) 1.6 10^3/uL (1.5-3.5); LYMPHOCYTES % (AUTO) 16.9 %; MEAN CORPUSCULAR HEMOGLOBIN 31.9 pg (27.0-31.0); MEAN CORPUSCULAR HGB CONC 33.8 g/dL (32.0-36.0); MEAN CORPUSCULAR VOLUME 94.5 fL (81.0-99.0); MONOCYTES # (AUTO) 0.7 10^3/uL (0.0-1.0); MONOCYTES % (AUTO) 7.1 %; NEUTROPHILS # (AUTO) 7.1 10^3/uL (1.5-6.6); NEUTROPHILS % (AUTO) 74.8 %; PLT - PLATELET COUNT 199 10^3/uL (130-450); RED BLOOD COUNT 4.17 10^6/uL (4.20-5.40); RED CELL DISTRIBUTION WIDTH 13.6 % (12.0-15.0); WHITE BLOOD COUNT 9.5 x10^3/uL (4.8-10.8)
[2021-03-14] MEDS ORDERED: valACYclovir 500 MG TABLET PO SCH (20:00)
[2021-03-15] MEDS ORDERED: SODIUM CHLORIDE FLUSH 0.9% 10 ML SYRINGE IVP SCH (01:00)
[2021-03-15] MEDS ORDERED: ACETAMINOPHEN 500 MG TABLET PO PRN (03:42)
[2021-03-15] MEDS ORDERED: IBUPROFEN 600 MG TABLET PO PRN (03:42)
[2021-03-15] MEDS ORDERED: HYDROCORTISONE 1% CREAM 28 GM TUBE PR PRN (03:42)
[2021-03-15] MEDS ORDERED: DOCUSATE SODIUM 100 MG CAPSULE PO PRN (03:42)
[2021-03-15] MEDS ORDERED: SIMETHICONE CHEW 80 MG TABLET PO PRN (03:42)
[2021-03-15] MEDS ORDERED: ONDANSETRON ODT 4 MG TABLET TL PRN (03:42)
--- NOTE | 2021-03-15 03:53 | DELIVERY NOTE ---
Delivery Note - Labor Labor: positive: Spontaneous - Delivery Method Delivery Method: positive: Spontaneous vaginal delivery - Presentation Presentation: positive: Vertex, Compound - Nuchal Cord Nuchal Cord: positive: None - Anesthetic Anesthetic Type: - Amniotic Fluid Description Amniotic Fluid Description: positive: Clear - Laceration Laceration: positive: 1st degree, Sulcus - Suture Suture Type: positive: Vicryl Suture Size: positive: 3-0 - Delivery Outcome Delivery Outcome: positive: Livebirth - : positive: Placed in direct skin contact with mother, Suctioned, Bulb syringe, Stimulated, Holden used sex: positive: Male - Cord Cord: positive: 3 vessels - Placenta Placenta: positive: Intact, Expressed - Estimated Blood Loss Estimated Blood Loss (in cc): 150 - Post Delivery Events Post Delivery Events: positive: No post delivery events - Delivery Comments (Free Text/Narrative) Delivery Comments (Free Text/Narrative): STAGE I: Patient is a 35 yo admitted at 39+3 wga with likely rupture of membranes. Presented earlier in the day after having a large gush of clear fluid on 03/13/21 at 10:45. ROM+ positive. Admitted for delivery 03/14/21 and found to have regular contractions. Desired limited to no intervention. Initial SVE was 3/80/-3. Repeat exam was 4/90/-1 at about 18:00 on 03/14/21. Forebag was present and was artificially ruptured with passage of clear fluid. No other means of augmentation were indicated. GBS positive; received ampicillin x 2 doses. No pain medication. Category I tracing throughout Stage I labor. Noted to be completed at 23:56. STAGE II: Patient was complete and started pushing at 23:56. She pushed well until delivery at 2:32 am on 03/15/21. Delivered a viable male infant from BRE/compound presentation with left shoulder anterior and right hand presenting with head. was delivered to mother's chest. Delayed cord clamping until cord pulsations had ceased. Cord was clamped x2 and cut. Apgars were 8/9, weight pending. STAGE III: Placenta delivered at 2:32 am with manual expression. It was examined and found to be intact. Inspection of the perineum showed a small 1st degree left sulcal laceration that was repaired with a running locked suture using 3-0 Vicryl. EBL 200. Procedure was well tolerated and without complication.
[2021-03-15] MEDS ORDERED: LACTATED RINGERS 1,000 ML IV SCH (04:00)
[2021-03-15] MEDS ORDERED: LEVOTHYROXINE 88 MCG TABLET PO SCH (07:00)
[2021-03-15] MEDS ORDERED: valACYclovir 500 MG TABLET PO SCH (09:00)
--- NOTE | 2021-03-15 18:49 | PROVIDER PROGRESS NOTE ---
Subjective - Prog Note Date Prog Note Date: 03/15/21 Prog Note Time: 16:00 - Subjective Subjective: Patient is up and ambulating, tolerating po, and voiding. Pain is well managed with pain medications. Needing additional support with . Objective - Vital Signs/Intake & Output Reviewed Vital Signs: Yes Vital Signs: Vital Signs x48h Temp Pulse Resp BP Pulse Ox 03/15/21 16:29 98.2 F 82 19 104/73 100 Intake & Output: Intake & Output 03/12/21 03/13/21 03/14/21 03/15/21 23:59 23:59 23:59 23:59 Intake Total 280 1232.5 Output Total 600 Balance 280 632.5 - Objective General Appearance: positive: No acute distress Neck: positive: Nml inspection Respiratory: positive: No respiratory distress, Breath sounds nml Cardiovascular: positive: Regular rate & rhythm Abdomen: positive: Non-tender, Other (S&NT/ND, FF below umbi) Back: positive: Nml inspection Skin: positive: Color nml Extremities: positive: Non-tender, No pedal edema Neurologic/Psychiatric: positive: Oriented x3 - Lab Results Fish Bones: 03/14/21 18:30 Other Labs: Lab Results x24hrs 03/14/21 03/14/21 Range/Units 18:52 18:30 WBC 9.5 (4.8-10.8) x10^3/uL RBC 4.17 L (4.20-5.40) 10^6/uL Hgb 13.3 (12.0-16.0) g/dL Hct 39.4 (37.0-47.0) % MCV 94.5 (81.0-99.0) fL MCH 31.9 H (27.0-31.0) pg MCHC 33.8 (32.0-36.0) g/dL RDW 13.6 (12.0-15.0) % Plt Count 199 (130-450) 10^3/uL MPV 11.0 H (7.9-10.8) fL Neut # (Auto) 7.1 H (1.5-6.6) 10^3/uL Lymph # (Auto) 1.6 (1.5-3.5) 10^3/uL [place] # (Auto) 0.7 (0.0-1.0) 10^3/uL Eos # (Auto) 0.0 (0.0-0.7) 10^3/uL Baso # (Auto) 0.0 (0.0-0.1) 10^3/uL Absolute Nucleated RBC 0.00 x10^3/uL Nucleated RBC % 0.0 /100WBC Blood Type O POSITIVE Antibody Screen NEGATIVE Assessment/Plan - Problem List (1) Vaginal delivery Impression: PPD#0: Early am delivery. Doing well Needs some support Cont inpatient care
[2021-03-16] MEDS ORDERED: LEVOTHYROXINE 112 MCG TABLET PO SCH (07:00)
--- NOTE | 2021-03-16 15:11 | PROVIDER PROGRESS NOTE ---
Subjective - Prog Note Date Prog Note Date: 03/16/21 Prog Note Time: 15:09 - Subjective Subjective: Patient is doing well. Feels better about latch today. Patient is up and ambulating, tolerating po, and voiding. Pain is well managed with pain medications. Objective - Vital Signs/Intake & Output Reviewed Vital Signs: Yes Vital Signs: Vital Signs x48h Temp Pulse Resp BP Pulse Ox 03/16/21 08:45 97.9 F 71 16 117/78 100 Intake & Output: Intake & Output 03/13/21 03/14/21 03/15/21 03/16/21 23:59 23:59 23:59 23:59 Intake Total 280 1232.5 Output Total 600 Balance 280 632.5 - Objective General Appearance: positive: No acute distress Neck: positive: Nml inspection Respiratory: positive: No respiratory distress, Breath sounds nml Cardiovascular: positive: Regular rate & rhythm Abdomen: positive: Non-tender, Other (S&NT/ND/FF below umbi) Back: positive: Nml inspection Skin: positive: Color nml Neurologic/Psychiatric: positive: Oriented x3 - Lab Results Fish Bones: 03/14/21 18:30 Assessment/Plan - Problem List (1) Vaginal delivery Impression: PPD#2: Doing well Routine pp care Planning on DC tomorrow Rh positive
[2021-03-17 08:51] VITALS: BP 113/74
--- NOTE | 2021-03-17 11:51 | Discharge Plan ---
Discharge Plan Problem Reviewed?: Yes Disposition: Home, Self Care Condition: Good Prescriptions: Acetaminophen [Acetaminophen Extra Strength] 1,000 mg PO Q8H PRN #60 tablet PRN Reason: Pain Acetaminophen [Acetaminophen Extra Strength] 1,000 mg PO Q8H PRN #60 tablet PRN Reason: Pain Docusate Sodium 100Mg Capsule [Colace 100Mg Capsule] 100 - 200 mg PO BID PRN #60 cap PRN Reason: Constipation Docusate Sodium 100Mg Capsule [Colace 100Mg Capsule] 100 - 200 mg PO BID PRN #60 cap PRN Reason: Constipation Ibuprofen [Motrin] 600 mg PO Q6H PRN #60 tab PRN Reason: Pain Ibuprofen [Motrin] 600 mg PO Q6H PRN #60 tab PRN Reason: Pain Diet: Regular Activity Restrictions: Additional Comments (Nothing in the vagina for 6 weeks: No intercourse, tampons, douching Call for: -Fever greater than 100.5 - Pain that does not improve with pain medication -Heavy bleeding in which you are soaking a pad an hour for 2 hours in a row No tub baths or hot tubs for 4 weeks) Shower Restrictions: Yes (No tub baths or hot tubs for 4 weeks) Additional Instructions or Follow Up instructions: Ibuprofen 600 mg by mouth every 6 hours as needed for pain Acetaminophen 500-1000 mg by mouth every 8 hours as needed for pain Docusate 100-200 mg by mouth twice a day as needed for constipation No Smoking: If you smoke, Please STOP! Call for help. Follow-up with: Elizabeth Gonzales MD [Provider Admit Priv/Credential] -
--- NOTE | 2021-03-17 11:52 | DISCHARGE SUMMARY ---
Discharge Summary Admit Date: 03/14/21 Discharge Date: 03/17/21 Discharging Provider: Christian Code Status: Attempt Resuscitation Condition at Discharge: Good Discharge Disposition: 01 Home, Self Care - DIAGNOSES Admission Diagnoses: IUP at 39+3 wga Rupture of membranes Discharge Diagnoses with Status of Each Condition: Same and delivery of term gestation - HPI History of Present Illness: Patient is a 35 yo admitted at 39+3 wga with ruptured membranes. HPI: Patient reports having painful contractions since day prior to presentation. A day prior to presentation, patient reported soaking pajamas and floor with a sudden gush of fluid. Had filled a pad with fluid on day of p resentation and continues to lose fluid when shifting position. GBS positive. Continues to have mild contractions. Taking levothyroxine for hypothyroidism with levels maintained in optimal range through . Unclear hx of HSV, on valacyclovir for prophylaxis. Wants to avoid pitocin, if possible. Desired unmedicated, low intervention delivery if possible. PNH: LMP unknown US on 08/06/20 at 8w0d gives ANIBAL 03/18/21 HYPOTHYROID: -Levothyroxine 100 mcg 5 days and 88 mcg 2 days per week -TSH 1.31 on 11/02/20 TSH 2.27 on 11/2020 TSH 2.78 on 01/25/21 TSH 2.71 on 02/18 O pos/Rubella immune VZV: immune Genetic testing: HARMONY 46 XY,, AFP wnl - carrier screening completed with [facility] FAS: EFW 86%ile, CL 5.14 posterior placenta, 3VC Glucola: 93 TDAP: 12/20/2020 COVID: completed x2 (August 2020) Influenza: 02/13/2021 GBS: collected 02/20 at 36w2d POSITIVE HSV: unclear but positive hx; - patient has obtained. and started meds for ppx Breast pump Rx: 01-03-2021 MOD: Anticipate PP Contraception: TBD Pap:November 2017 per [facility] records - HOSPITAL COURSE Hospital Course: STAGE I: Patient is a 35 yo admitted at 39+3 wga with likely rupture of membranes. Presented earlier in the day after having a large gush of clear fluid on 03/13/21 at 10:45. ROM+ positive. Admitted for delivery 03/14/21 and found to have regular contractions. Desired limited to no intervention. Initial SVE was 3/80/-3. Repeat exam was 4/90/-1 at about 18:00 on 03/14/21. Forebag was present and was artificially ruptured with passage of clear fluid. No other means of augmentation were indicated. GBS positive; received ampicillin x 2 dos es. No pain medication. Category I tracing throughout Stage I labor. Noted to be completed at 23:56. STAGE II: Patient was complete and started pushing at 23:56. She pushed well until delivery at 2:32 am on 03/15/21. Delivered a viable male from BRE/compound presentation with left shoulder anterior and right hand presenting with head. was delivered to mother's chest. Delayed cord clamping until cord pulsations had ceased. Cord was clamped x2 and cut. Apgars were 8/9, weight 3565 g STAGE III: Placenta delivered at 2:32 am with manual expression. It was examined and found to be intact. Inspection of the perineum showed a small 1st degree left sulcal laceration that was repaired with a running locked suture using 3-0 Vicryl. EBL 200. Procedure was well tolerated and without complication. course was uncomplicated for mother and baby. [facility]. Discharged on PPD#2. Rh positive Rubella immune LABOR PROVIDER: Christian DELIVERING PROVIDER: Christian APGARS 8/9 BW 3565g - ALLERGIES Allergies/Adverse Reactions: Allergies Allergy/AdvReac Type Severity Reaction Status Date / Time No Known Drug Allergies Allergy Verified 12/04/17 02:32 - MEDICATIONS Home Medications: Ambulatory Orders Medication Instructions Recorded Confirmed No122/Iron/Folic Acid 1 each PO 12/04/17 [ Multi Tablet] Acetaminophen [Acetaminophen Extra 1,000 mg PO Q8H PRN #60 tablet 03/16/21 Strength] Acetaminophen [Acetaminophen Extra 1,000 mg PO Q8H PRN #60 tablet 03/16/21 Strength] Docusate Sodium 100Mg Capsule 100 - 200 mg PO BID PRN #60 cap 03/16/21 [Colace 100Mg Capsule] Docusate Sodium 100Mg Capsule 100 - 200 mg PO BID PRN #60 cap 03/16/21 [Colace 100Mg Capsule] Ibuprofen [Motrin] 600 mg PO Q6H PRN #60 tab 03/16/21 Ibuprofen [Motrin] 600 mg PO Q6H PRN #60 tab 03/16/21 - PHYSICAL EXAM AT DISCHARGE General Appearance: positive: No acute distress Neck: positive: Nml inspection Respiratory: positive: No respiratory distress, Breath sounds nml Cardiovascular: positive: Regular rate & rhythm Peripheral Pulses: positive: 2+ Abdomen: positive: Non-tender, Other (S&NT/ND. FF below umbi) - LABS Result Diagrams: 03/14/21 18:30 - FOLLOW UP Follow Up: [address] Gonzales - TIME SPENT Time Spent in Discharge (Minutes): 30
== END 2021-03-17 13:03 | disposition home or self-care (01) | DRG 806 ==
LOC: WFO 17:15 → FBP 17:16 → WFO 18:06 → FBP 18:06
PROVIDERS: ADMIT Obstetrics & Gynecology; ATTEND Obstetrics & Gynecology
PROC: 0HQ9XZZ Repair Perineum Skin, External Approach (ICD-10-PCS; principal; 2021-03-15)
PROC: 10E0XZZ Delivery of Products of Conception, External Approach (ICD-10-PCS; 2021-03-15)
DX: O42.12 Full-term premature rupture of membranes, onset of labor more than 24 hours following rupture (principal); O98.52 Other viral diseases complicating childbirth; Z37.0 Single live birth; Z3A.39 39 weeks gestation of pregnancy; O70.0 First degree perineal laceration during delivery; O32.6XX0 Maternal care for compound presentation, not applicable or unspecified; O99.284 Endocrine, nutritional and metabolic diseases complicating childbirth; E03.9 Hypothyroidism, unspecified; B00.9 Herpesviral infection, unspecified; Z79.899 Other long term (current) drug therapy; O99.824 Streptococcus B carrier state complicating childbirth; O99.891 Other specified diseases and conditions complicating pregnancy; M54.50 Low back pain, unspecified; N89.8 Other specified noninflammatory disorders of vagina
CPT/HCPCS: 36415; 59025; 84112; 85025; 86850; 86900; 86901; 99213; 99215; A9270; J2210; J7120; 99214

== ENCOUNTER 2021-05-02 12:17 | Outpatient (CLI) | payer OTHER ==
[2021-05-02 12:58] LABS: THYROID STIMULATING HORMONE 0.14 uIU/mL (0.34-5.60)
[2021-05-02 15:44] LABS: FREE T4 (FREE THYROXINE) 1.49 ng/dL (0.58-1.64)
== END 2021-05-02 12:18 | disposition home or self-care (01) ==
LOC: LAB 12:17
PROVIDERS: ATTEND Obstetrics & Gynecology
DX: R94.6 Abnormal results of thyroid function studies (principal)
CPT/HCPCS: 36415; 84439; 84443

== ENCOUNTER 2021-06-06 13:52 | Outpatient (CLI) | payer OTHER ==
[2021-06-06 14:36] LABS: THYROID STIMULATING HORMONE 0.18 uIU/mL (0.34-5.60)
[2021-06-06 17:03] LABS: FREE T4 (FREE THYROXINE) 1.25 ng/dL (0.58-1.64)
== END 2021-06-06 13:53 | disposition home or self-care (01) ==
LOC: LAB 13:52
PROVIDERS: ATTEND Obstetrics & Gynecology
DX: R94.6 Abnormal results of thyroid function studies (principal)
CPT/HCPCS: 36415; 84439; 84443

== ENCOUNTER 2021-07-16 09:48 | Outpatient (CLI) | payer OTHER ==
[2021-07-16 12:38] LABS: THYROID STIMULATING HORMONE 2.11 uIU/mL (0.34-5.60)
[2021-07-16 12:40] LABS: FREE T4 (FREE THYROXINE) 1.03 ng/dL (0.58-1.64)
== END 2021-07-16 09:49 | disposition home or self-care (01) ==
LOC: LAB.N 09:48
PROVIDERS: ATTEND Physician Assistant
DX: R94.6 Abnormal results of thyroid function studies (principal); Z86.39 Personal history of other endocrine, nutritional and metabolic disease
CPT/HCPCS: 36415; 82306; 84439; 84443

== ENCOUNTER 2022-03-22 09:49 | Outpatient (CLI) | payer OTHER | END 2022-03-22 09:50 | disposition home or self-care (01) | LOC: LAB.N 09:49 | PROVIDERS: ATTEND Physician Assistant | DX: Z86.39 Personal history of other endocrine, nutritional and metabolic disease (principal) | CPT/HCPCS: 82306 ==

== ENCOUNTER 2022-09-13 09:19 | Outpatient (CLI) | payer OTHER ==
[2022-09-13 20:21] LABS: BASOPHILS % (AUTO) 0.7 %; EOSINOPHILS # (AUTO) 0.1 10^3/uL (0.0-0.7); HCT - HEMATOCRIT 44.3 % (37.0-47.0); HGB - HEMOGLOBIN 13.6 g/dL (12.0-16.0); LYMPHOCYTES % (AUTO) 45.8 %; MEAN CORPUSCULAR HEMOGLOBIN 28.3 pg (27.0-31.0); MEAN CORPUSCULAR HGB CONC 30.7 g/dL (32.0-36.0); MEAN CORPUSCULAR VOLUME 92.3 fL (81.0-99.0); MEAN PLATELET VOLUME 9.9 fL (7.9-10.8); MONOCYTES # (AUTO) 0.4 10^3/uL (0.0-1.0); MONOCYTES % (AUTO) 8.6 %; NEUTROPHILS # (AUTO) 1.8 10^3/uL (1.5-6.6); NEUTROPHILS % (AUTO) 41.9 %; PLT - PLATELET COUNT 305 10^3/uL (130-450); RED CELL DISTRIBUTION WIDTH 14.6 % (12.0-15.0); WHITE BLOOD COUNT 4.3 x10^3/uL (4.8-10.8)
[2022-09-13 20:52] LABS: ALBUMIN 4.3 g/dL (3.2-5.5); ALBUMIN/GLOBULIN RATIO 1.3 (1.0-2.2); ALKALINE PHOSPHATASE 56 IU/L (42-121); ALT ALANINE AMINOTRANSFERASE 17 IU/L (10-60); AST ASPARTATE AMINOTRANSFERASE 19 IU/L (10-42); BILIRUBIN,TOTAL 0.7 mg/dL (0.2-1.0); BUN - BLOOD UREA NITROGEN 10 mg/dL (6-20); CARBON DIOXIDE - CO2 29 mmol/L (21-32); CHLORIDE 107 mmol/L (101-111); CHOL/HDL RATIO 3.8 (<4.4); CHOLESTEROL 193 mg/dL; CREATININE 0.7 mg/dL (0.4-1.0); GFR - MDRD 94 (>89); GLUCOSE 82 mg/dL (70-100); HDL CHOLESTEROL 51 mg/dL; LDL CHOLESTEROL,CALCULATED 131 mg/dL; LDL/HDL RATIO 2.6 (<4.4); POTASSIUM 4.5 mmol/L (3.5-5.0); SODIUM 141 mmol/L (135-145); TOTAL PROTEIN 7.6 g/dL (6.7-8.2); TRIGLYCERIDES 56 mg/dL; VLDL CHOLESTEROL 11 mg/dL
[2022-09-13 21:03] LABS: THYROID STIMULATING HORMONE 2.11 uIU/mL (0.34-5.60)
[2022-09-13 21:04] LABS: FREE T4 (FREE THYROXINE) 1.02 ng/dL (0.58-1.64)
== END 2022-09-13 09:20 | disposition home or self-care (01) ==
LOC: LAB.N 09:19
PROVIDERS: ATTEND Physician Assistant
DX: E03.9 Hypothyroidism, unspecified (principal); E78.5 Hyperlipidemia, unspecified
CPT/HCPCS: 36415; 80053; 80061; 83721; 84439; 84443; 85025

== ENCOUNTER 2023-08-17 07:11 | Outpatient (CLI) | payer OTHER ==
[2023-08-17 12:27] LABS: BASOPHILS % (AUTO) 0.6 %; EOSINOPHILS # (AUTO) 0.2 10^3/uL (0.0-0.7); EOSINOPHILS % (AUTO) 3.6 %; HCT - HEMATOCRIT 43.3 % (37.0-47.0); HGB - HEMOGLOBIN 13.8 g/dL (12.0-16.0); LYMPHOCYTES # (AUTO) 1.8 10^3/uL (1.5-3.5); LYMPHOCYTES % (AUTO) 28.9 %; MEAN CORPUSCULAR HEMOGLOBIN 29.1 pg (27.0-31.0); MEAN CORPUSCULAR HGB CONC 31.9 g/dL (32.0-36.0); MEAN CORPUSCULAR VOLUME 91.4 fL (81.0-99.0); MEAN PLATELET VOLUME 10.4 fL (7.9-10.8); MONOCYTES # (AUTO) 0.4 10^3/uL (0.0-1.0); MONOCYTES % (AUTO) 6.6 %; NEUTROPHILS # (AUTO) 3.7 10^3/uL (1.5-6.6); NEUTROPHILS % (AUTO) 60.1 %; PLT - PLATELET COUNT 289 10^3/uL (130-450); RED BLOOD COUNT 4.74 10^6/uL (4.20-5.40); RED CELL DISTRIBUTION WIDTH 13.2 % (12.0-15.0); WHITE BLOOD COUNT 6.2 x10^3/uL (4.8-10.8)
[2023-08-17 13:32] LABS: HDL CHOLESTEROL 49 mg/dL
[2023-08-17 13:50] LABS: ALBUMIN 4.4 g/dL (3.2-5.5); ALBUMIN/GLOBULIN RATIO 1.7 (1.0-2.2); ALKALINE PHOSPHATASE 45 IU/L (42-121); ALT ALANINE AMINOTRANSFERASE 11 IU/L (10-60); AST ASPARTATE AMINOTRANSFERASE 17 IU/L (10-42); BILIRUBIN,TOTAL 0.7 mg/dL (0.2-1.0); BUN - BLOOD UREA NITROGEN 10 mg/dL (6-20); CALCIUM 9.6 mg/dL (8.5-10.3); CARBON DIOXIDE - CO2 28 mmol/L (21-32); CHLORIDE 107 mmol/L (101-111); CHOL/HDL RATIO 3.6 (<4.4); CHOLESTEROL 178 mg/dL; CREATININE 0.8 mg/dL (0.6-1.3); GFR - MDRD 81 (>89); GLUCOSE 94 mg/dL (74-104); LDL CHOLESTEROL,CALCULATED 117 mg/dL; LDL/HDL RATIO 2.4 (<4.4); POTASSIUM 4.5 mmol/L (3.5-4.5); SODIUM 138 mmol/L (135-145); TRIGLYCERIDES 61 mg/dL (48-352); VLDL CHOLESTEROL 12 mg/dL
== END 2023-08-17 07:12 | disposition home or self-care (01) ==
LOC: LAB.N 07:11
PROVIDERS: ATTEND Physician Assistant
DX: E78.5 Hyperlipidemia, unspecified (principal); E03.9 Hypothyroidism, unspecified; Z79.899 Other long term (current) drug therapy
CPT/HCPCS: 36415; 80053; 80061; 83721; 84443; 85025

== ENCOUNTER 2023-08-25 17:30 | Outpatient (CLI) | payer OTHER | END 2023-08-25 17:45 | disposition home or self-care (01) | LOC: LAB.N 17:30 | PROVIDERS: ATTEND Physician Assistant Medical | DX: Z20.818 Contact with and (suspected) exposure to other bacterial communicable diseases (principal) | CPT/HCPCS: 87070 ==